=== PATIENT | female | born 1955 | race Caucasian/White ===

== ENCOUNTER → 2021-08-02 | Outpatient (CLI) | payer MEDICARE ==
--- NOTE | 2021-08-02 19:07 | BD ---
EXAMINATION TYPE: Axial Bone Density DATE OF EXAM: 08/02/2021 COMPARISON: NONE CLINICAL HISTORY: Postmenopausal screening Height: 5 FT 5 IN Weight: 154 FRAX RISK QUESTIONS: Alcohol (3 or more units per day): NO Family History (Parent hip fracture): NO Glucocorticoids (More than 3mos): NO (Ex: prednisone, prednisolone, methylprednisolone, dexamethasone, and hydrocortisone). History of Fracture in Adulthood: YES Secondary Osteoporosis: 1. Type 1 Diabetes: NO 2. Hyperthyroidism: NO 3. Menopause before 45: NO 4. Malnutrition: NO 5. Chronic liver disease: NO Rheumatoid Arthritis: NO Current Tobacco Use: FORMER RISK FACTORS HISTORY OF: History of Wrist Fracture: YES RT When: 10 YEARS AGO Surgery to Spine/Hip(right/left)/Wrist (right/left): NO Family History of Osteoporosis: NO Active: YES Diet low in dairy products/other sources of calcium: NO Postmenopausal woman: YES Take estrogen and/or progesterone medications: NO Lost more than 2 inches in height since high school: NO Frequent falls: NO Poor Health: GOOD Hyperparathyroidism: NO Adrenal Insufficiency: NO MEDICATIONS: Additional Medications: DIGOXIN ,ASPIRIN Additional History: A FIB EXAM MEASUREMENTS: Bone mineral densitometry was performed using the [employer] System. Bone mineral density as measured about the Lumbar spine is: ----- L1-L4(G/cm2): 0.916 T Score Values are as follows: ----- L2: -1.9 ----- L3: -1.8 ----- L4: -3.6 ----- L1-L4: -2.2 BASELINE Bone mineral density about the R hip (g/cm2): 0.625 Bone mineral density about the L hip (g/cm2): 0.697 T Score values are as follows: -----R Neck: -3.0 -----L Neck: -2.5 -----R Total: -2.8 -----L Total: -2.6 BASELINE IMPRESSION: Osteoporosis (T Score less than -2.5). There is increased fracture risk and therapy is usually indicated based on age. Re-Screen 1-2 years. NOTE: T-SCORE=SD OF THE YOUNG ADULT MEAN.
--- NOTE | 2021-08-03 11:06 | MM ---
Reason for exam: screening (asymptomatic). Baseline mammogram. History: Patient is postmenopausal. Physical Findings: Nurse did not find any significant physical abnormalities on exam. MG 3D Screening Mammo W/Cad Bilateral CC and MLO view(s) were taken. There are scattered fibroglandular densities. Finding: There is a 4 mm obscured round mass located 1-2 cm from the nipple in the lower inner quadrant, anterior position of the left breast. ASSESSMENT: Incomplete: need additional imaging evaluation, BI-RAD 0 RECOMMENDATION: Ultrasound of the left breast. [facility] will attempt to contact patient to return for ultrasound.
== END | disposition home or self-care (01) ==
LOC: RADBDWWP 13:05
PROVIDERS: ATTEND Family Medicine
DX: Z12.31 Encounter for screening mammogram for malignant neoplasm of breast (principal); M81.0 Age-related osteoporosis without current pathological fracture; Z78.0 Asymptomatic menopausal state
CPT/HCPCS: 77063; 77067; 77080

== ENCOUNTER → 2021-08-04 | Outpatient (CLI) | payer MEDICARE ==
--- NOTE | 2021-08-07 10:29 | USB ---
Reason for exam: additional evaluation requested from abnormal screening. History: Patient is postmenopausal. Physical Findings: Breast exam preformed at baseline screening. US Breast Workup Limited LT Left limited breast ultrasound including focal area of concern, retroareolar and axilla demonstrates a 0.4 x 0.5 x 0.3cm oval, cystic cluster at 6 o'clock and a 1.0 x 1.1 x 0.6cm lymph node at the axilla. These results were verbally communicated with the patient and result sheet given to the patient on 08/04/21. ASSESSMENT: Probably benign, BI-RAD 3 RECOMMENDATION: Follow-up diagnostic mammogram of the left breast in 6 months.
== END | disposition home or self-care (01) ==
LOC: RADUSWWP 08:10
PROVIDERS: ATTEND Family Medicine
DX: N60.12 Diffuse cystic mastopathy of left breast (principal); Z78.0 Asymptomatic menopausal state

== ENCOUNTER → 2022-02-02 | Outpatient (CLI) | payer MEDICARE ==
--- NOTE | 2022-02-02 11:08 | MM ---
Reason for Exam: Follow-up at short interval from prior study. Last screening mammogram was performed 6 month(s) ago. Patient History: Menarche at age 9. First Full-Term at age 16. Postmenopausal. Risk Values: Brittani 5 year model risk: 1.4%. NCI Lifetime model risk: 4.4%. Prior Study Comparison: 08/02/2021 Bilateral Screening Mammogram, [facility]. Tissue Density: Left: The breast tissue is heterogeneously dense. This may lower the sensitivity of mammography. Findings: Analyzed By CAD. Stable asymmetric tissue inferior left breast inferior medial aspect. No new or enlarging mass or suspicious group of microcalcifications left breast. Overall Assessment: Benign, BI-RAD 2 Management: Screening Mammogram of both breasts in 6 months. Back on schedule. Results were given to the patient verbally at the time of exam. Electronically signed and approved by: Arley Gutierrez M.D.
== END | disposition home or self-care (01) ==
LOC: RADMAMWWP 10:48
PROVIDERS: ATTEND Family Medicine
DX: R92.8 Other abnormal and inconclusive findings on diagnostic imaging of breast (principal); Z78.0 Asymptomatic menopausal state
CPT/HCPCS: 77065; G0279; 77061

== ENCOUNTER → 2022-04-27 | Outpatient (CLI) | payer MEDICARE ==
--- NOTE | 2022-04-27 08:38 | US ---
EXAMINATION TYPE: US duplex aorta DATE OF EXAM: 04/27/2022 COMPARISON: NONE CLINICAL HISTORY: Z13.6 SCREENING FOR CARDIOVASCULAR DISORDER. Patient states she is on medicine for heart disease. No family hx AAA. TECHNIQUE: Multiple sonographic images of the abdominal aorta are obtained. FINDINGS: EXAM MEASUREMENTS: Abdominal Aorta: Proximal: 1.8 x 1.9 cm Mid: 1.7 x 1.5 cm Distal: 1.6 x 1.2 cm Bifurcation: Right- 0.7 x 0.9 cm Left- 0.7 x 0.8 cm CORPORATE ACCOUNT EXECUTIVE NOTES: No plaque seen. No AAA visualized at time of exam. IMPRESSION: No AAA
== END | disposition home or self-care (01) ==
LOC: RADUSWWP 08:06
PROVIDERS: ATTEND Family Medicine
DX: Z13.6 Encounter for screening for cardiovascular disorders (principal)
CPT/HCPCS: 93979

== ENCOUNTER → 2023-02-04 | Outpatient (CLI) | payer MEDICARE ==
--- NOTE | 2023-02-04 09:42 | MM ---
Reason for Exam: Screening (asymptomatic). Last mammogram was performed 1 year(s) and 6 month(s) ago. Patient History: Menarche at age 9. First Full-Term at age 16. Postmenopausal. Risk Values: Brittani 5 year model risk: 1.4%. NCI Lifetime model risk: 4.2%. Prior Study Comparison: 08/02/2021 Bilateral Screening Mammogram, [facility]. 02/02/2022 Left MG 3D diag mammo w/cad LT, [facility]. Tissue Density: The breast tissue is heterogeneously dense. This may lower the sensitivity of mammography. Findings: Analyzed By CAD. There is no suspicious group of microcalcifications or new suspicious mass in either breast. Overall Assessment: Negative, BI-RAD 1 Management: Screening Mammogram of both breasts in [address] [facility] will attempt to contact patient to return for supplemental views and ultrasound if indicated. Patient should continue monthly self-breast exams. A clinical breast exam by your physician is recommended on an annual basis. This exam should not preclude additional follow-up of suspicious palpable abnormalities. Note on Brittani scores and lifetime risk: 1. A Brittnai score greater than 3% is considered moderate risk. If this is the case, consider specialist referral to assess eligibility for a risk reducing agent. 2. If overall lifetime risk for the development of breast cancer is 20% or higher, the patient may qualify for future screening with alternating mammogram and breast MRI. Electronically signed and approved by: Nik Eugene DO
== END | disposition home or self-care (01) ==
LOC: RADMAMWWP 09:07
PROVIDERS: ATTEND Family Medicine
DX: Z12.31 Encounter for screening mammogram for malignant neoplasm of breast (principal); Z78.0 Asymptomatic menopausal state
CPT/HCPCS: 77063; 77067

== ENCOUNTER → 2024-04-14 | Outpatient (CLI) | payer MEDICARE ==
--- NOTE | 2024-04-14 23:17 | BD ---
EXAMINATION TYPE: Axial Bone Density DATE OF EXAM: 04/14/2024 CLINICAL HISTORY: 68 years old Female. ICD-10 CODE: M81.0 AGE RELATED OSTEO Height: 64.2in Weight: 150lb FRAX RISK QUESTIONS: History of Fracture in Adulthood: yes Secondary Osteoporosis: RISK FACTORS HISTORY OF: History of Wrist Fracture: yes, right When: about 12 years ago MEDICATIONS: Osteoporosis Medications: Which medication: Alendronate How Lon-8 months EXAM MEASUREMENTS: Bone mineral densitometry was performed using the [employer] System. Bone mineral density as measured about the Lumbar spine is: ----- L1-L4(G/cm2): 0.983 T Score Values are as follows: ----- L1: -1.1 ----- L2: -1.1 ----- L3: -1.5 ----- L4: -3.0 ----- L1-L4: -1.6 Z Score Values are as follows: ----- L1: 0.5 ----- L2: 0.5 ----- L3: 0.1 ----- L4: -1.5 ----- L1-L4: -0.1 Bone mineral density has: Increased 7.3% since study of: 08-02-21 Bone mineral density about the R hip (g/cm2): 0.673 Bone mineral density about the L hip (g/cm2): 0.718 T Score values are as follows: -----R Neck: -2.5 -----L Neck: -2.3 -----R Total: -2.7 -----L Total: -2.3 Z Score values are as follows: -----R Neck: -0.8 -----L Neck: -0.7 -----R Total: -1.2 -----L Total: -0.9 Bone mineral density has: Increased 4.2% since study of: 08-02-21 FRAX%s: The graph provided illustrates a 23% chance for a major osteoporotic fx and a 5.8% chance for the hips probability for fx in 10 years time. IMPRESSION: Osteoporosis (T Score less than -2.5). There is increased fracture risk and therapy is usually indicated based on age. Re-Screen 1-2 years. NOTE: T-SCORE=SD OF THE YOUNG ADULT MEAN. [facility], , 04/14/2024 11:15 PM
--- NOTE | 2024-04-16 09:21 | MM ---
Reason for Exam: Screening (asymptomatic). Last mammogram was performed 1 year(s) and 2 month(s) ago. Patient History: Menarche at age 9. First Full-Term at age 16. Postmenopausal. Risk Values: Brittani 5 year model risk: 1.4%. NCI Lifetime model risk: 4.0%. Prior Study Comparison: 08/02/2021 Bilateral Screening Mammogram, [facility]. 02/02/2022 Left MG 3D diag mammo w/cad LT, [facility]. 02/04/2023 Bilateral MG 3D screening mammo w/cad, [facility]. Tissue Density: There are scattered areas of fibroglandular density. Findings: Analyzed By CAD. Right breast: There is no suspicious group of microcalcifications or new suspicious mass. Left breast: There is no suspicious group of microcalcifications or new suspicious mass. Overall Assessment: Negative, BI-RAD 1 Management: Screening Mammogram of both breasts in [address] [facility] will attempt to contact patient to return for supplemental views and ultrasound if indicated. Patient should continue monthly self-breast exams. A clinical breast exam by your physician is recommended on an annual basis. This exam should not preclude additional follow-up of suspicious palpable abnormalities. Note on Brittani scores and lifetime risk: 1. A Brittani score greater than 3% is considered moderate risk. If this is the case, consider specialist referral to assess eligibility for a risk reducing agent. 2. If overall lifetime risk for the development of breast cancer is 20% or higher, the patient may qualify for future screening with alternating mammogram and breast MRI. [facility], , 04/16/2024 9:18 AM. Electronically signed and approved by: Nik Eugene DO
== END | disposition home or self-care (01) ==
LOC: RADMAMWWP 13:20
PROVIDERS: ATTEND Family Medicine
CPT/HCPCS: 77063; 77067; 77080